=== PATIENT | female | born 1970 | race Caucasian/White ===

== ENCOUNTER → 2018-01-12 | Outpatient (CLI) | payer OTHER ==
--- NOTE | 2018-01-12 10:49 | ECHO ---
[email or web address] [address] [address] Main: [phone] Fax: Transthoracic Echocardiogram Name: COLE WALLACE MR#: [id number] Study Date: 01/12/2018 Study Time: 07:28 AM Date of : 1970 Age: 47 year(s) Height: ( ) Weight: ( ) BSA: Gender: Female Examination: Echo Indication: Tachycardia/Eval for P htn Image Quality: Contrast: Requested by: Enrrique Contreras BP: / Heart Rate: Rhythm: Indication: Tachycardia/Eval for P htn Procedure Staff Chief Technology Officer: Devora Heredia RDCS Reading Physician: Samir Peres MD Requesting Provider: Conclusions: Normal study Measurements: Chambers Valvular Assessment AV/MV Valvular Assessment TV/PV Normal Normal Normal Name Value Range Name Value Range Name Value Range Ao Jazmine (MM): 2.5 cm (2.2 cm-3.7 AV meanP mmHg ( - ) TR Vmax: 2.33 mm/s ( - ) cm) MV E Vmax: 0.88 m/s ( - ) TR PGmax: 22 mmHg ( - ) IVSd (2D): 0.6 cm (0.6 cm-1.1 MV A Vmax: 0.59 m/s ( - ) syst. PAP: 27 mmHg ( - ) cm) MV E/A: 1.49 ( - ) LVDd (2D): 4.0 cm (3.9 cm-5.3 cm) LVDs (2D): 2.6 cm (2.1 cm-4 cm) LVPWd (2D): 0.5 cm ( - ) LVEF (MOD4): 70 % (>=55 %) EF Range: 60-65 % Continued Measurements: Chambers Valvular Assessment AV/MV Valvular Assessment TV/PV Name Value Name Value Name Value LADs: 2.3 cm MV E/E' Septal: 7.10 CVP (est.): 5 mmHg LADs Lon.4 cm MV E/E' Lateral: 6.00 LA Area: 13.9 cm2 Findings: Left Ventricle: Normal size left ventricle. No LV hypertrophy. Normal global systolic LV function. The ejection Patient: COLE WALLACE Study Date: 01/12/2018 Page 1 of 2 07:28 AM fraction is estimated to be 60-65 %. No regional wall motion abnormality. Normal diastolic LV function. Right Ventricle: Normal size right ventricle. Left Atrium: The left atrium is normal in size. Right Atrium: The right atrium is normal in size. Mitral Valve: The mitral valve is normal in appearance and function. Trivial mitral valve regurgitation. Aortic Valve: The aortic valve is normal in appearance and function. Tricuspid Valve: The tricuspid valve is normal in appearance and function. Trivial tricuspid valve regurgitation. The pulmonary artery pressure is normal. Pulmonic Valve: Pulmonary valve not well visualized. Aorta: The aorta is normal. Pericardium: Trivial anterior pericardial effusion. (No Signature Object) Patient: COLE WALLACE Study Date: 01/12/2018 Page 2 of 2 07:28 AM [id number]
== END ==
LOC: FCATH 07:22
PROVIDERS: ATTEND Nurse Practitioner Family
DX: R00.2 Palpitations (principal); R06.02 Shortness of breath; R01.1 Cardiac murmur, unspecified

== ENCOUNTER → 2018-08-26 | Outpatient (CLI) | payer OTHER | LOC: FIMAGING 11:06 | PROVIDERS: ATTEND Nurse Practitioner | DX: Z12.31 Encounter for screening mammogram for malignant neoplasm of breast (principal) ==

== ENCOUNTER 2018-08-31 11:48 | Emergency (ER) | payer OTHER ==
[2018-08-31] MEDS ORDERED: TDAP ADULT 0.5 ML INJ (BOOSTRIX) IM ONE (12:12)
--- NOTE | 2018-08-31 12:17 | EDPHY ---
H & P Time Seen by Provider: 08/31/18 12:00 HPI/ROS: CHIEF COMPLAINT: Right knee pain and laceration abrasion HISTORY OF PRESENT ILLNESS: 47-year-old female with out-of-date tetanus, works at [employer], was walking on hospital campus when she sustained a mechanical fall, tripped and fell onto her right knee, tearing her pants. She was also caring a glass bottle that broke and impacted her knee a possibly caused some laceration as well. She is able to bear weight albeit with some pain. Full weight-bearing She has full range of motion albeit with some pain with specifically with extremes of flexion. Denies: Head injury, midline C-spine pain, other musculoskeletal injury, proximal distal pain or injury. PHYSICAL EXAM (Prior to examination, patient consented to physical exam, hands were washed and my usual and customary physical exam procedures followed) 1) GENERAL: Well-developed, well-nourished, alert and oriented. Appears to be in no acute distress. 2) HEAD: Normocephalic 3) HEENT: Pupils equal, round, reactive to light bilaterally. 4) LUNGS: Breathing comfortably. 5) MUSCULOSKELETAL: Exam of the right knee shows multiple abrasions and multiple discrete lacerations. Cumulative length of lacerations equal 7 cm, irregular. . Compartments are soft. 6) SKIN: Soft compartments no signs of infection. 7) VASCULAR: DP,PT pulses and cap refill present and brisk distally DIFFERENTIAL DIAGNOSIS: in no particular order including but not limited to fracture, sprain, compartment syndrome, septic arthritis, DVT Smoking Status: Never smoked Constitutional: Initial Vital Signs Temperature (C) 36.8 C 08/31/18 11:50 Heart Rate 112 H 08/31/18 11:50 Respiratory Rate 18 08/31/18 11:50 Blood Pressure 147/85 H 08/31/18 11:50 O2 Sat (%) 99 08/31/18 11:50 O2 Delivery Mode Room Air Allergies/Adverse Reactions: erythromycin base [Erythromycin Base] Allergy (Verified 08/31/18 11:53) Home Medications: Medication Instructions Recorded AZITHROMYCIN [Z-PACK] 250 mg PO DAILY #4 tab 10/03/16 Albuterol 10/03/16 Breo Ellipta 200-25 Mcg INH 10/03/16 Flonase Nasal [place] 10/03/16 ZYRTEC 10/03/16 Cephalexin [Keflex] 500 mg PO TID 5 Days cap 08/31/18 MDM/Departure - [facility] Procedures: Procedure: Laceration repair. I explained the indications, risks and benefits for both laceration repair and anesthetic administration. Verbal consent was obtained from the patient. The laceration on the right anterior knee was anesthetized using 0.5% bupivicaine with epinephrine. After anesthetic administered the patient was observed for a period of time and had no apparent adverse effects. The wound was cleaned, prepped, draped in normal sterile fashion and explored to its base. Small pieces of gravel or manually debrided by myself. To running sutures of 4 0 Prolene and 9 simple interrupted 4 0 Prolene sutures placed by myself.. The wound repair was complex. The procedure was performed by myself. Patient has been informed that scarring will occur, although efforts have been made to minimize this. Medications Given: Discontinued Medications Diphtheria/Tetanus/Acell Pertussis (Boostrix) 0.5 ml IM .ONCE ONE Stop: 08/31/18 12:13 Last Admin: 08/31/18 12:37 Dose: 0.5 ml ED Course/Re-evaluation: I saw this patient independently based on established practice protocols. Care of patient under supervision of primary Supervising physician Dr Juan Vogel. Post irrigation and debridement x-ray shows no radiopaque foreign body. Wound has been closed primarily in the ER. Doubt traumatic arthrotomy. Will initiate antibiotic prophylaxis. This is a work comp injury will need work comp follow-up. Return to the ER in 14 days for suture removal or may follow up with work comp provider. Usual and customary wound precautions and instructions provided. - Depart Disposition: Home, Routine, Self-Care Clinical Impression: Laceration of right knee Qualifiers: Encounter type: initial encounter Qualified Code(s): S81.011A - Laceration without foreign body, right knee, initial encounter Condition: Good Instructions: Care For Your Stitches (ED), Laceration (ED) Additional Instructions: Return to the ER if you develop redness, swelling, discharge, warmth to the wound, red streaks going up your leg, or any other symptoms that concern you. Stand Alone Forms: Work Comp Follow Up, Work Excuse Prescriptions: Cephalexin [Keflex] 500 mg PO TID 5 Days cap Referrals: Return, to the ER in 14 days for suture removal [Other] - As per Instructions
[2018-08-31] MEDS ORDERED: CEPHALEXIN 500 MG CAP PO ONE (13:03)
[2018-08-31 13:42] VITALS: BP 145/89
== END 2018-08-31 13:52 | disposition home or self-care (01) ==
PROC: 0HQKXZZ Repair Right Lower Leg Skin, External Approach (ICD-10-PCS; principal; 2018-08-31)
DX: S81.011A Laceration without foreign body, right knee, initial encounter (principal); W01.0XXA Fall on same level from slipping, tripping and stumbling without subsequent striking against object, initial encounter; Y92.238 Other place in hospital as the place of occurrence of the external cause; Y99.0 Civilian activity done for income or pay